=== PATIENT | female | born 1965 | race Caucasian/White ===

== ENCOUNTER → 2018-05-20 13:59 | Outpatient (CLI) | payer BC ==
[2013-10-27 10:58] VITALS: BMI 26.5
[~2018-05-20 13:59] MED LIST: EFFEXOR XR150 MG PO; EFFEXOR25 MG PO; TENORMIN25 MG PO; TENORMIN50 MG PO; [UNRECOGNIZED DRUG - REMARK] PO
== END | disposition home or self-care (01) ==
LOC: D.CT 13:59
DX: R74.8 Abnormal levels of other serum enzymes (principal)

== ENCOUNTER → 2018-05-29 07:10 | Outpatient (CLI) | payer BC ==
[2013-10-27 10:58] VITALS: BMI 26.5
== END | disposition home or self-care (01) ==
LOC: D.MRI 07:10
DX: K86.2 Cyst of pancreas (principal)